=== PATIENT | female | born 1945 | race Caucasian/White ===

== ENCOUNTER 2016-08-26 10:05 | Day surgery (SDC) | payer OTHER, MEDICARE ==
[2016-08-24 18:21] VITALS: BMI 26.1
[2016-08-26] MEDS ORDERED: METHYLENE BLUE 1% 10 MG/1 ML VIAL ONE (10:32)
[2016-08-26] MEDS ORDERED: MIDAZOLAM HCL 2 MG/2 ML SINGLE DOSE VIAL ONE (10:48)
[2016-08-26] MEDS ORDERED: ROCURONIUM BROMIDE 50 MG/5 ML VIAL ONE (10:48)
[2016-08-26] MEDS ORDERED: HYDROmorphone HCL/PF 1 MG/ML VIAL (FOR PYXIS CHARGING ONLY) ONE (10:48)
[2016-08-26] MEDS ORDERED: PROPOFOL 20 ML ONE (10:48)
[2016-08-26] MEDS ORDERED: oxyCODONE HCL 5 MG TABLET PO PRN (11:52)
[2016-08-26] MEDS ORDERED: ACETAMINOPHEN 325 MG TABLET (FP) PO PRN (11:52)
[2016-08-26] MEDS ORDERED: ONDANSETRON 4 MG/2 ML VIAL IVPUSH PRN (11:52)
[2016-08-26] MEDS ORDERED: LACTATED RINGERS SOLUTION 1,000 ML IV SCH (12:00)
[2016-08-26] MEDS ORDERED: ceFAZolin SODIUM 1 GM VIAL IVPB ONE ×2 (12:02)
[2016-08-26] MEDS ORDERED: ceFAZolin SODIUM 1 GM VIAL ONE (12:11)
[2016-08-26] MEDS ORDERED: KETOROLAC TROMETHAMINE 30 MG/1 ML VIAL ONE (12:11)
[2016-08-26] MEDS ORDERED: ePHEDrine SULFATE 50 MG/1 ML AMPULE ONE (14:12)
[2016-08-26] MEDS ORDERED: NEOSTIGMINE METHYLSULFATE 0.5 MG/ML - 10 ML MDV ONE (14:27)
[2016-08-26] MEDS ORDERED: GLYCOPYRROLATE 0.2 MG/1 ML VIAL ONE (14:28)
--- NOTE | 2016-08-26 15:12 | SURG ---
Surgery Wastewater Technician Note Wastewater Technician: Senthil Montana PA-C Date of Service: 08/26/16 Diagnosis: Symptomatic macromastia Procedure: Bilateral breast reduction I was present for the entirety of the operative procedure. For further detail, please refer to operative report. Visit type - Case Type Case Type: Scheduled Admission - New patient This patient is new to me today: Yes Date on this admission: 08/26/16
[2016-08-26] MEDS ORDERED: HYDROmorphone HCL CARPU-JECT 2 MG/1 ML DISP.SYRIN ONE (15:23)
[2016-08-26] MEDS: HYDROmorphone HCL CARPU-JECT 1 MG/1 ML DISP.SYRIN IVPUSH PRN ×4 (15:25→16:30)
--- NOTE | 2016-08-26 16:08 | OP ---
Operative Note - Note: Operative Date: 08/26/16 Pre-Operative Diagnosis: Symptomatic Macromastia Operation: Bilateral Reduction Mammaplasty Surgeon: Aakash Jung Anesthesia: General Estimated Blood Loss (mls): 150 Drains & Tubes with Location: [place] Drains exiting each lateral inframammary fold. Operative Report Dictated: Yes
[2016-08-26] MEDS ORDERED: ACETAMINOPHEN 1000 MG/100 ML VIAL (NON FORMULARY) IVPB ONE ×2 (16:15)
[2016-08-26 17:36] VITALS: TEMP 98.4
[2016-08-26 19:10] VITALS: BP 99/53; PULSE 74
--- NOTE | 2016-08-27 12:59 | OP ---
DATE OF OPERATION: 08/26/2016 DATE OF DICTATION: 08/26/2016 PREOPERATIVE DIAGNOSIS: Symptomatic macromastia. POSTOPERATIVE DIAGNOSIS: Symptomatic macromastia. PROCEDURE PERFORMED: Bilateral reduction mammoplasty. SURGEON: Aakash Jung MD ANESTHESIA: General. BRIEF HISTORY: The patient is a 70-year-old female with symptoms of macromastia including severe shoulder grooving, neck, back, and shoulder pain, and severe intertrigo bilaterally. She now presents for bilateral reduction. THE PROCEDURE: The patient was marked in the standing position one day prior to surgery and is now on the operating table. The area of the chest was prepped and draped in the usual sterile fashion. The previously placed markings were used as a guide for surgery. The right breast was approached first, and a tourniquet was placed at the base of the right breast, and a 52-mm cookie-cutter was used to outline a circular incision about the right nipple areolar complex. A bipedicled breast reduction was performed creating a superiorly and inferiorly based pedicle to help retain some superior pole fullness. The pedicle was deepithelialized, and tissue was removed in the medial, superior and lateral quadrants. Hemostasis was achieved with electrocautery, and a 0.5-inch Eugenia drain was placed exiting the inframammary fold laterally. Good nipple perfusion was appreciated, and the wounds were closed in layered fashion. Deep tissues were closed with No. 3-0 and 4-0 Biosyn sutures in interrupted buried fashion, and a deep dermal layer of 4-0 V-Loc 90 was used to close the skin. Wounds were secured with Steri-Strips. A similar procedure was performed on the left breast. Total resections were 597 g on the right and 624 g on the left. Of note, the V-Loc suture was left loose around the [place] drain to be pulled tight once the drain is removed postoperatively. All wounds were secured with Steri-Strips, and the patient was dressed with fluff dressings and combine pads and secured with a surgical bra. She was then awoken from anesthesia without any difficulty and taken from the operating room to the recovery room in satisfactory condition having tolerated the procedure well. Marck GARCIA/[id number]
--- NOTE | 2016-08-30 13:27 | PATH ---
Surgical Pathology Report Patient Name: IZABELLA NASCIMENTO [facility]. Rec. #: [id number] /Age/Gender: 1945 (Age: 70) / F Account: [id number] Location: [facility] SURGICAL Taken: 08/26/2016 Received: 08/26/2016 Reported: 08/30/2016 Physicians: Aakash Jung M.D. Specimen(s) Received A: MASS RIGHT BREAST B: RIGHT BREAST TISSUE X2 C: LEFT BREAST TISSUE X2 Clinical History Bilateral breast macromastia Intraoperative Consult Diagnosis A. Right breast mass, frozen section: Benign breast tissue with fibrocystic changes. Radha Yoo M.D., 08/26/2016 Final Diagnosis A. RIGHT BREAST MASS, WIDE EXCISION: BENIGN BREAST TISSUE WITH FIBROCYSTIC CHANGES INCLUDING USUAL DUCTAL HYPERPLASIA (UDH), SCLEROSING ADENOSIS, COLUMNAR CELL CHANGE, STROMAL FIBROSIS, DUCTAL DILATATION, AND CYSTIC APOCRINE METAPLASIA. MICROCALCIFICATIONS ARE IDENTIFIED WITHIN BENIGN DUCTAL STRUCTURES. SMALL FIBROADENOMA PRESENT. B. RIGHT BREAST, REDUCTION MAMMOPLASTY: BENIGN BREAST TISSUE WITH FIBROCYSTIC CHANGES INCLUDING USUAL DUCTAL HYPERPLASIA (UDH), SCLEROSING ADENOSIS, COLUMNAR CELL CHANGE, STROMAL FIBROSIS, DUCTAL DILATATION, AND CYSTIC APOCRINE METAPLASIA. MICROCALCIFICATIONS ARE IDENTIFIED WITHIN BENIGN DUCTAL STRUCTURES. UNREMARKABLE SKIN PRESENT. C. LEFT BREAST, REDUCTION MAMMOPLASTY: BENIGN BREAST TISSUE WITH FIBROCYSTIC CHANGES INCLUDING USUAL DUCTAL HYPERPLASIA (UDH), SCLEROSING ADENOSIS, COLUMNAR CELL CHANGE, STROMAL FIBROSIS, DUCTAL DILATATION, AND CYSTIC APOCRINE METAPLASIA. MICROCALCIFICATIONS ARE IDENTIFIED WITHIN BENIGN DUCTAL STRUCTURES. UNREMARKABLE SKIN PRESENT. Electronically Signed Chuck Yoo M.D. Gross Description A. Received fresh labeled "mass right breast" is a 4.4 x 3.3 x 1.4 cm piece of yellow and britton fibrofatty tissue. The margins are inked. No distinct mass is identified. Uniform Maker sections are frozen and the frozen remainder is submitted in cassette A1. All of the remaining tissue is submitted in cassettes A2 to A8. B. Received in formalin labeled "right breast tissue" is a 497 g, 20.0 x 14.0 x 5.0 cm aggregate of multiple jenkins-yellow, irregular, unoriented portions of fibroadipose tissue and jenkins, unremarkable skin. The excess skin is received within a separate container. Sectioning reveals multifocal dense, white, firm fibrous tissue. No definitive masses are identified. Uniform Maker sections are submitted in 6 cassettes. C. Received in formalin labeled "left breast tissue" is a 499 g, 17.5 x 16.5 x 6.5 cm aggregate of multiple jenkins-yellow, irregular, unoriented portions of fibroadipose tissue and jenkins, unremarkable skin. The excess skin is received within a separate container. Sectioning reveals multifocal dense, white, firm fibrous tissue. No definitive masses are identified. Uniform Maker sections are submitted in 5 cassettes. 08/27/2016 [facility]08/26/2016
== END 2016-08-26 18:55 | disposition home or self-care (01) ==
LOC: JASU-SURG 10:05
PROVIDERS: ATTEND Plastic Surgery
PROC: 0HBV0ZZ Excision of Bilateral Breast, Open Approach (ICD-10-PCS; principal; 2016-08-26 11:30)
DX: N62 Hypertrophy of breast (principal)
CPT/HCPCS: 88305-TC; 88307-TC; 88331-TC; 94760

== ENCOUNTER → 2019-05-23 | Day surgery (SDC) | payer OTHER, MEDICARE ==
--- NOTE | 2019-05-24 11:07 | OP ---
DATE OF OPERATION: 05/23/2019 PREOPERATIVE DIAGNOSIS: Abnormal right mammography. POSTOPERATIVE DIAGNOSIS: Abnormal right mammography. PROCEDURE: Right breast stereotactic needle biopsy with clip. SURGEON: Hortencia Perez MD ANESTHESIA: Local. COMPLICATIONS: None. This was a sterile procedure. INDICATION FOR PROCEDURE: The patient presented with a screening mammography that noted indeterminate calcifications in the upper right breast. Recommendation was needle biopsy. The procedure was discussed with her. All her questions answered. PROCEDURE IN DETAIL: Patient was brought to [facility] in [place], laid prone on the [place] table. Using the cranial approach, the calcifications in the upper, slightly inner right breast were identified. A sterile prep was obtained. A target was chosen. There was a positive stroke margin. Using Betadine and 1% lidocaine, a 9-gauge [employer] device was used to take several cores from this area. Cores showed calcification within them. These were handled using the calcification protocol. An O-shaped clip was deployed in the area. Hemostasis was assured with direct pressure. Incision was closed with Steri-Strips. She tolerated the procedure well, left the breast imaging center in good condition. HORTENCIA PEREZ M.D. [id number]
--- NOTE | 2019-05-25 16:22 | PATH ---
Surgical Pathology Report Patient Name: IZABELLA NASCIMENTO [facility]. Rec. #: [id number] /Age/Gender: 1945 (Age: 73) / F Account: [id number] Location: [facility] Taken: 05/23/2019 Received: 05/23/2019 Reported: 05/25/2019 Physicians: Hortencia Ramirez M.D. Specimen(s) Received A: RIGHT BREAST SPECIMN WITH CALCIFICATIONS B: RIGHT BREAST SPECIMEN WITHOUT CALCIFICATIONS Clinical History Nonpalpable lesion Mammographic findings: Microcalcification, suspicious Final Diagnosis A. RIGHT BREAST SPECIMEN WITH CALCIFICATIONS, STEREOTACTIC BIOPSY: BENIGN BREAST TISSUE WITH FAT NECROSIS, OLD HEMORRHAGE, MARKED HISTIOCYTIC REACTION, STROMAL FIBROSIS, AND ASSOCIATED CALCIFICATIONS. B. RIGHT BREAST SPECIMEN WITHOUT CALCIFICATIONS, STEREOTACTIC BIOPSY: BENIGN BREAST TISSUE WITH FOCAL MILD USUAL DUCTAL HYPERPLASIA (UDH) AND ASSOCIATED MICROCALCIFICATIONS, MILD CHRONIC INFLAMMATION, HISTIOCYTIC REACTION, AND STROMAL FIBROSIS. Electronically Signed Shawn Mayo M.D. Gross Description A. Received in formalin labeled "right breast with calcifications," are 6 jenkins-yellow, cylindrical portions of fibroadipose tissue ranging from 0.9-2.0 cm in length and averaging 0.3 cm in diameter. The specimens are submitted in toto in 2 cassettes. B. Received in formalin labeled "right breast without calcifications," are 3 jenkins-yellow, cylindrical portions of fibroadipose tissue averaging 1.6 cm in length and 0.3 cm in diameter. The specimens are submitted in toto in one cassette. Time to formalin fixation: 7 minutes Total formalin fixation time: Approximately 29 hours. 05/24/2019 [facility]05/24/2019
== END | disposition home or self-care (01) ==
LOC: FMAMMOTONE 11:19
PROVIDERS: ATTEND Surgery
PROC: 0HBT3ZX Excision of Right Breast, Percutaneous Approach, Diagnostic (ICD-10-PCS; principal; 2019-05-23)
DX: N60.31 Fibrosclerosis of right breast (principal); D69.8 Other specified hemorrhagic conditions; N64.1 Fat necrosis of breast; N64.89 Other specified disorders of breast; R92.1 Mammographic calcification found on diagnostic imaging of breast
CPT/HCPCS: 19081; 76098-TC-FY; 87899; 88305-TC; A4648